=== PATIENT | female | born 1980 | race Caucasian/White ===

== ENCOUNTER 2023-11-29 16:46 | Emergency (ER) | payer MEDICAID ==
[~2023-11-29] VITALS: Ht 154.9 cm; Wt 63.5 kg
[~2023-11-29 16:46] MED LIST: HYDR2TAB34 PO; MORP60TA34 PO
[2023-11-29 17:17] VITALS: BP_SYST 133; PULSE 107; RESP 20; TEMP 98; O2SAT 95
[2023-11-29 17:49] LABS: BASOPHILS % (AUTO) 0.8 % (0.0-2.0); EOSINOPHILS # (AUTO) 0.1 K/uL (0.0-0.4); HEMOGLOBIN 12.8 g/dL (12.0-16.0); LYMPHOCYTES # (AUTO) 1.2 K/uL (1.0-5.5); LYMPHOCYTES % (AUTO) 27.2 % (20.5-51.5); MEAN CORPUSCULAR HEMOGLOBIN 29 pg (27-31); MEAN CORPUSCULAR HGB CONC 34 % (32-36); MEAN CORPUSCULAR VOLUME 85 fL (79.0-98.0); MONOCYTES # (AUTO) 0.4 K/uL (0.0-1.0); NEUTROPHILS # (AUTO) 2.8 K/uL (1.8-7.7); PLATELET COUNT (AUTO) 206 K/uL (130-430); RED BLOOD CELL COUNT(AUTO) 4.45 MIL/uL (4.2-6.2); RED CELL DISTRIBUTION WIDTH 13.3 % (9.0-15.0); WHITE BLOOD COUNT (AUTO) 4.6 K/uL (4.8-10.8)
[2023-11-29 18:33] LABS: INR 1.1 (0.8-1.2); PROTHROMBIN TIME 11.4 SECS (9.5-12.5)
[2023-11-29 18:40] LABS: CALCIUM 8.7 mg/dL (8.4-11.0); CREATININE 0.49 mg/dL (0.55-1.30); POTASSIUM 4.5 mmol/L (3.5-5.1)
[2023-11-29] MEDS ORDERED: NEOM28.37 TP (19:19)
[2023-11-29] MEDS ORDERED: CLIN-142 PO (19:19)
[2023-11-29] MEDS: MORPHINE 4 MG INJ. 4 MG/ML VIAL IM ONE (19:27)
[2023-11-29] MEDS: DIPHTH,PERTUSS(ACELL),TET VAC 0.5 ML VIAL (Tdap) I.M. ONE (19:32)
[2023-11-29] MEDS: BACITRACIN 1 GM OINT TP ONE (19:33)
[2023-11-29 19:41] VITALS: BP_SYST 143; PULSE 80; RESP 19; TEMP 98.1; O2SAT 96
== END 2023-11-29 19:41 | disposition home or self-care (01) ==
LOC: SED 16:46
DX: L97.519 Non-pressure chronic ulcer of other part of right foot with unspecified severity (principal); L03.115 Cellulitis of right lower limb; Z79.899 Other long term (current) drug therapy
CPT/HCPCS: 99284; 80048; 85025; 85610; 85730; 36415; 73630; 90715; 96372; 83605; 90471; 82397; J2270